=== PATIENT | male | born 2000 | race Caucasian/White ===

== ENCOUNTER 2023-03-19 19:45 | Emergency (ER) | payer MEDICAID, SELFPAY ==
[2023-03-19 19:48] VITALS: BP 124/87; PULSE 66; RESP 16; TEMP 36.7; O2SAT 100; BMI 36.6
--- NOTE | 2023-03-19 19:52 | XR_ITS ---
The [address] [address] Patient Name: MIGUELINA XIE MRN: [id number] date: 2000 Sex: M Assigned Patient Location: ER Current Patient Location: ED.MAIN Accession/Order Number: [id number] Exam Date: 03/19/2023 19:55 Report Date: 03/19/2023 20:30 At the request of: LEONCIO URRUTIA Procedure: XR hand RT min 3V EXAM: XR hand RT min 3V HISTORY: foreign body COMPARISON: None. TECHNIQUE: 3 views right hand FINDINGS: No acute fracture or aggressive osseous abnormality. Joint spaces and alignment are preserved. Carpal rows and arcs are maintained. No radiographically dense foreign body in the soft tissues. XR/XR hand RT min 3V IMPRESSION: No acute osseous abnormality of the right hand. No radiographically dense foreign body in the soft tissues. Electronically authenticated by: RUDI RADER Date: 03/19/2023 20:30
[2023-03-19] MEDS: ADACEL DIPH,PERTUSS(ACELL),TET VAC/PF 0.5 ML ADULT SYRINGE IM (20:09)
[2023-03-19] MEDS: AMOXICILLIN/POTASSIUM CLAV 1 TAB TABLET PO (20:09)
--- NOTE | 2023-03-19 20:15 | ED.ANIMALBI1 ---
HPI - Animal Bite General Chief Complaint: Animal Bite Stated Complaint: Extremity Injury, Upper Time Seen by Provider: 03/19/23 19:53 History of Present Illness HPI narrative: 22-year-old male presents here with a chief complaint of a dog bite to the right hand. Patient was bitten by his dog's prior to arrival small puncture wound noted just superior to the webspace of the right hand. He is right-hand dominant. No other injuries are noted. Patient is not up-to-date in his tetanus. He states his dog is immunized getting updated shots this week. MD complaint: Reports animal bite Related Data Previous Rx's Medication Instructions Recorded amoxicillin 875 mg-potassium 1 tab PO BID #20 tabs 03/19/23 clavulanate 125 mg tablet Allergies Allergy/AdvReac Type Severity Reaction Status Date / Time No Known Drug Allergies Allergy Verified 03/19/23 19:51 Review of Systems ROS Narrative All Systems are negative except as noted/marked.All systems reviewed and otherwise negative Exam Narrative Exam Narrative: Nurses note and vital signs reviewed and patient is not hypoxic. General: The patient appears well and in no apparent distress. Patient is resting comfortably on cart. Skin: Warm, dry, no pallor noted. There is no rash noted. Head: Normocephalic, atraumatic Eye: Normal conjunctiva, no drainage, EOMI. PERRL Musculoskeletal: superficial puncture wound dorsal aspect of the right hand, no acute foreign body noted, soft tissue swelling noted. Remainder extremities unremarkable. Neurological: A&O x4, normal speech Psychiatric: Cooperative Constitutional Vital Signs, click to edit/add: Last Vital Signs Temp 98.1 F 03/19/23 19:48 Pulse 66 03/19/23 19:48 Resp 16 03/19/23 19:48 BP 124/87 03/19/23 19:48 Pulse Ox 100 03/19/23 19:48 Course Vital Signs Vital signs: Vital Signs Temperature 98.1 F 03/19/23 19:48 Pulse Rate 66 03/19/23 19:48 Respiratory Rate 16 03/19/23 19:48 Blood Pressure 124/87 03/19/23 19:48 Pulse Oximetry 100 03/19/23 19:48 Temperature 98.1 F 03/19/23 19:48 Pulse Rate 66 03/19/23 19:48 Respiratory Rate 16 03/19/23 19:48 Blood Pressure 124/87 03/19/23 19:48 Pulse Oximetry 100 03/19/23 19:48 MDM - Animal Bite MDM Narrative Medical decision making narrative: patient present with superficial dog bite. X-ray shows no acute foreign body. Patient was updated on tetanus. Emergency room hand was cleaned and irrigated well with Hibiclens normal saline. Augmentin was given. Patient be discharged home prescription of Augmentin follow-up primary care physician. Results return to the emergency room were discussed. Patient verbalizes understanding agrees with plan of care Differential Diagnosis Differential diagnosis: Likely bite by animal and dog bite Medical Records Attestation: I reviewed the patient's medical records. Imaging Data hand: Attestation: I have reviewed the pertinent imaging results. My impression: no acute foreign body Discharge Plan Discharge Chief Complaint: Animal Bite Clinical Impression: Dog bite Patient Disposition: Home, Self-Care Time of Disposition Decision: 20:21 Condition: Good Prescriptions / Home Meds: New amoxicillin-pot clavulanate 875-125 mg tablet 1 tab PO BID Qty: 20 0RF Instructions: Animal Bite (ED) Stand Alone Forms: Portal Instructions Referrals: Toni Meneses MD [Primary Care Provider] - 1 week
== END 2023-03-19 20:42 | disposition home or self-care (01) ==
PROVIDERS: Emergency Provider Emergency Medicine; PCP Family Medicine
DX: S60.571A Other superficial bite of hand of right hand, initial encounter (principal); W54.0XXA Bitten by dog, initial encounter; Z23 Encounter for immunization
CPT/HCPCS: 73130; 90471; 90715; 99284